=== PATIENT | male | born 1985 ===

== ENCOUNTER 2022-12-25 09:39 | Inpatient (IN) | payer OTHER ==
[~2022-12-25] VITALS: Ht 182.9 cm; Wt 90.7 kg
[2022-12-26] MEDS ORDERED: COZAAR25 MG PO (09:46)
[2022-12-26] MEDS ORDERED: ADULT LOW DOSE81 M1 PO (09:47)
[2023-01-05] MEDS ORDERED: HYOSCYAMINE0.125 M1 SL (12:31)
[2023-01-05] MEDS ORDERED: PERCOCET 5-3251 EACH PO (12:32)
== END 2023-01-05 13:26 | disposition home or self-care (01) | DRG 329 ==
LOC: O/R 01-01 06:19 → SURG 01-01 06:19
PROVIDERS: Internal Medicine Geriatric Medicine; ADMIT Surgery; ATTEND Surgery
PROC: 0DBP4ZZ Excision of Rectum, Percutaneous Endoscopic Approach (ICD-10-PCS; 2023-01-01)
PROC: 0DJD8ZZ Inspection of Lower Intestinal Tract, Via Natural or Artificial Opening Endoscopic (ICD-10-PCS; 2023-01-01)
PROC: 4A12X4Z Monitoring of Cardiac Electrical Activity, External Approach (ICD-10-PCS; 2023-01-01)
PROC: 0DTN4ZZ Resection of Sigmoid Colon, Percutaneous Endoscopic Approach (ICD-10-PCS; principal; 2023-01-01 07:00)
DX: K57.20 Diverticulitis of large intestine with perforation and abscess without bleeding (principal); K65.1 Peritoneal abscess; R10.32 Left lower quadrant pain; I11.9 Hypertensive heart disease without heart failure; F17.200 Nicotine dependence, unspecified, uncomplicated; G47.30 Sleep apnea, unspecified; Z20.822 Contact with and (suspected) exposure to COVID-19